=== PATIENT | male | born 1940 | race Caucasian/White ===

== ENCOUNTER 2023-11-26 10:30 | Outpatient (RCR) | payer MEDICARE, BC, SELFPAY ==
--- NOTE | 2023-10-02 16:18 | PT.OPEX ---
PT [place] [facility] Outpatient Eval Start: 10/02/23 07:58 Freq: Status: Active Protocol: Document 10/02/23 07:59 AMS (Rec: 10/02/23 16:14 AMS [id number]) E-signed By Mariela Strauss PT Physical Therapy Outpatient Evaluation Insurance Information Recert Due Date 12/26/23 Insurance Name Medicare B,[employer] Medical Diagnosis Right hip abductor tendinitis Right hip bursitis Treating Diagnosis Right hip pain Muscle weakness Right hip stiffness Referring MD Bebo Weir MD Subjective Subjective Andrea is a new patient in my office today. He is a pleasant 83yr old male. Presents with right hip pain. He reports flaring up his hip while carrying three 50 lb bags of salt down stairs on 06/26/2023 . Since then he has had pain on the outside part of the hip in into the buttocks. Sitting and sleeping seem to be fine. He has significant pain with start-up. As he gets going the pain recedes. However, if he walks a long way the pain returns. A fall was not associated with these symptoms. He has tried some ibuprofen, Tylenol and an assist device. He has not seen therapy. He has never had surgery on his hip. - Bebo Weir, 09/11/23, confirmed by patient Patient is a 83-year-old male who presents to physical therapy with primary concern of three-month history of right lateral hip pain. He states it started about three months ago on 06/26 while carrying three 50-lbs bags of salt on the stairs. It got progressively worse as he lifted and has not gotten better since then. No other hx of injury. No catching, locking, or clicking for the most part - just a little at times, he states. No numbness or tingling. Does have 30- year history of low back pain as well. Pain characteristics: Eases with rest. Sharp with first steps after sitting, then improves significantly with more steps. Localized to lateral/posterior hip. Sometimes will feel pain down in his knee and anterior mcgowan as well. Aggravating factors: taking first steps with weight on it, stairs, walking short and long distances, standing ( previously had a little bit of pain with this at baseline), laying on right side Easing factors: Advil and Tylenol, rest, offloading weight with gait aid Prior level of function: Independent without gait aid Previous treatments: has tried SPC (this helped), Advil/ Tylenol Current functional limitations : taking first steps with weight on it, stairs, walking short and long distances, standing (previously had a little bit of pain with this at baseline), laying on right side Red flags: denies hx of fracture/osteoporosis Imaging: None. PMHx: osteoarthritis, low back pain, allergies Social history/current exercise: He lives with his , Rosemary. No formal exercise. Pretty sedentary throughout the day. He is an amateur radiology ct technologist for fun . Has many grandkids and some kids of his own. Does own a stationary bike. Goals: Decreasing pain/ improving mobility Falls: None. States his balance has not been as good the last year or so, however. Pain Comments 10/10 at worst (1st steps) 1 or 2/10 current (after a few steps) 0/10 at rest Date of Last Physician Visit 09/11/23 Current Work Status Retired Preferred Name Andrea Precautions Treatment Precautions/Contraindications None Therapy Limitations/Systems Review Hearing Objective Other/Pertinent Objective Gait assessment: Ambulates with moderately antalgic gait on the right side. Mildly increased postural sway. BALANCE Single leg stance: R 1.5 sec with pain, L 3.5 sec FUNCTIONAL MOBILITY Double leg squat: To 45 deg, quad dominant, no pain KNEE ROM WNL END RANGE QUAD CONTROL Straight leg raise: Mild quad lag, independent LUMBAR ROM Flexion: To mid-mcgowan with knees bent Extension: 25% limited Right Sidebendin%, to just above lateral joint line Left Sidebendin%, to just above lateral joint line Right rotation: 100% Left rotation: 75% HIP ROM (R/L) Flexion: 110/100 Extension: 15/15 Internal Rotation: 0/10 External Rotation: 40/35 Abduction: WNL LE MMT: Hip flexion: R 4-/5 with pain* , L 4+/5 Hip abduction: R 3+/5 with pain* L 4/5 Hip extension: R 4-/5 with pain* L 4+/5 Knee flexion: R 5/5 L 5/5 Knee extension: R 4+/5 L 5/5 SPECIAL TEST Hip Labral/Intra-articular Pathology: -CURTIS: -, although c/o groin pain -FADIR: - -Log Roll: - Hip impingement: -Scour test: - -Leno: - Gluteal tendinopathy: -30-sec SLS test: + for pain right JOINT MOBILITY/PALPATION: Tenderness to palpation noted over right posterior gluteal muscle. Increased tone noted right lateral hip posterior to greater trochanter and into ITB on right. TTP over L4-L5, although did not reproduce hip pain. Functional Test Performed & Score LEFS: 42/80 = 52.5% Assessment Assessment/Impression Pt is a 83 -year-old male who presents with concerns of three-month history of right hip pain and moderate to high severity and irritability. Signs and symptoms are likely indicating / consistent with right hip gluteal tendinopathy . Notably, pt also has history of chronic low back pain as well. On exam, patient also demonstrates notable objective findings including limited hip ROM without onset of pain, impaired balance, antalgic gait, mildly limited lumbar ROM without provocation of hip symptoms, pain with resisted hip flexion, extension, and abduction, pain with SLS, and decreased hip strength, especially of hip abductors, leading to difficulties with taking initial steps, weightbearing activities, stairs, walking short and long distances, standing ( previously had a little bit of hip pain with this at baseline), and laying on right side, which is his preferred sleeping position. No concern for potential fracture at this time given significant improvement in pain levels after only a few steps and nature of symptoms. Patient is appropriate for skilled physical therapy services to address the above deficits. Pt was agreeable with plan of care and goals established. Primary Functional Limitations taking first steps with weight on it, stairs, walking short and long distances, standing ( previously had a little bit of pain with this at baseline), laying on right side Plan of Care Rehabilitation Potential Good Physical Therapy Goals In 2 sessions: Pt will demonstrate consistent HEP compliance to ensure progress in reaching established goals during course of care. In 8-10 sessions: Patient is able to sleep, including on side, with waking 0-1 times per week due to pain. Pt will be able to walk up to or >1 mile without pain. Patient will report pain levels < 2/10 with all activity in order to improve functional mobility at home, work, and during functional leisure activities. Patient will improve LEFS by 9 pts or 12% for meaningful improvement in symptoms. Coordination/Communication With Referral Source Treatment Plan/Direct Interventions Gait Training,Joint Mobilization,Manual Therapy, Neuromuscular Re-ed,Self-Care/ Home Management,Therapeutic Activities,Therapeutic Exercises Frequency/Duration 1x/week for 8-10 visits Patient Will Be Discharged From Therapy Completion of LTG(s), Independent w/HEP, Independently Progressing Evaluation Billing Untimed Code Treatment Minutes 25 Complexity Low Certification Information Initial Certification Date 10/02/23 Ending Certification Date 12/26/23 Provider Signature Shows Agreement With POC & Medical Necessity Physician Signature & Date Requested Please Sign/Date Here Physician Comment/Change : Physician NPI Number #
== END 2024-03-25 23:59 | disposition home or self-care (01) ==
PROVIDERS: PCP Family Medicine; Visit Provider Orthopaedic Surgery
DX: M70.71 Other bursitis of hip, right hip (principal); M67.853 Other specified disorders of tendon, right hip; Z51.89 Encounter for other specified aftercare
CPT/HCPCS: 97110; 97140; 97161